=== PATIENT | male | born 1960 | race Caucasian/White ===

== ENCOUNTER 2020-08-30 15:34 | Inpatient (IN) | payer BC ==
[~2020-08-30] VITALS: Ht 182.9 cm; Wt 118.4 kg
[~2020-08-30 15:34] MED LIST: CARAFATE1 GM/10 ML PO; ESOMEPRAZOLE MA20 MG PO; NTG IV; PEPCID20 MG PO
[2020-08-30 16:45] LABS: RED BLOOD COUNT 4.24 M/UL (4.20-5.50); WHITE BLOOD COUNT 3.5 K/UL (4.5-11.0)
[2020-08-30 17:31] LABS: BUN/CREATININE RATIO 20 (0-10)
[2020-08-30] MEDS ORDERED: LIPITOR TAB 2020 MG PO (21:37)
[2020-08-30] MEDS ORDERED: IBUPROFEN800 MG PO (21:38)
[2020-08-30] MEDS ORDERED: LOPRESSOR 50 MG50 MG PO (21:38)
[2020-08-30] MEDS ORDERED: PLAVIX75 MG PO (21:39)
[2020-08-30] MEDS ORDERED: PHENERGAN6.25 MG/1 PO (21:41)
[2020-08-31 05:14] LABS: HEMOGLOBIN 12.4 gm/dl (14.0-17.5)
[2020-08-31 05:15] LABS: RED BLOOD COUNT 3.73 M/UL (4.20-5.50); WHITE BLOOD COUNT 2.2 K/UL (4.5-11.0)
[2020-08-31 05:37] LABS: BUN/CREATININE RATIO 25 (0-10)
[2020-09-01 04:49] LABS: HEMOGLOBIN 11.9 gm/dl (14.0-17.5); RED BLOOD COUNT 3.65 M/UL (4.20-5.50)
[2020-09-01 05:04] LABS: WHITE BLOOD COUNT 3.5 K/UL (4.5-11.0)
[2020-09-01 05:11] LABS: BUN/CREATININE RATIO 40 (0-10)
[2020-09-02 04:35] LABS: HEMOGLOBIN 10.9 gm/dl (14.0-17.5); RED BLOOD COUNT 3.39 M/UL (4.20-5.50)
[2020-09-02 04:37] LABS: WHITE BLOOD COUNT 2.5 K/UL (4.5-11.0)
[2020-09-02 05:04] LABS: BUN/CREATININE RATIO 32 (0-10)
[2020-09-03 05:30] LABS: HEMOGLOBIN 12.2 gm/dl (14.0-17.5)
[2020-09-03 05:42] LABS: RED BLOOD COUNT 3.75 M/UL (4.20-5.50); WHITE BLOOD COUNT 3.2 K/UL (4.5-11.0)
[2020-09-03 06:11] LABS: BUN/CREATININE RATIO 30 (0-10)
[2020-09-04 01:57] LABS: HEMOGLOBIN 12.5 gm/dl (14.0-17.5); RED BLOOD COUNT 3.82 M/UL (4.20-5.50); WHITE BLOOD COUNT 3.1 K/UL (4.5-11.0)
[2020-09-04 02:40] LABS: BUN/CREATININE RATIO 30 (0-10)
[2020-09-05 04:50] LABS: HEMOGLOBIN 12.7 gm/dl (14.0-17.5); RED BLOOD COUNT 3.93 M/UL (4.20-5.50); WHITE BLOOD COUNT 2.8 K/UL (4.5-11.0)
[2020-09-05 05:08] LABS: BUN/CREATININE RATIO 31 (0-10)
[2020-09-06 05:36] LABS: HEMOGLOBIN 12.5 gm/dl (14.0-17.5); RED BLOOD COUNT 3.84 M/UL (4.20-5.50); WHITE BLOOD COUNT 2.7 K/UL (4.5-11.0)
[2020-09-06 06:06] LABS: BUN/CREATININE RATIO 32 (0-10)
[2020-09-06 14:12] LABS: ORGANISM ID Not indicated. (.); SPECIMEN SOURCE Urine (.); STREPTOCOCCUS PNEUMONIAE AG Negative (Negative)
[2020-09-07 04:10] LABS: HEMOGLOBIN 12.8 gm/dl (14.0-17.5); WHITE BLOOD COUNT 2.6 K/UL (4.5-11.0)
[2020-09-07 04:51] LABS: BUN/CREATININE RATIO 30 (0-10)
[2020-09-08 04:06] LABS: HEMOGLOBIN 13.4 gm/dl (14.0-17.5); RED BLOOD COUNT 4.16 M/UL (4.20-5.50); WHITE BLOOD COUNT 2.8 K/UL (4.5-11.0)
[2020-09-08 04:36] LABS: BUN/CREATININE RATIO 30 (0-10)
[2020-09-08] MEDS ORDERED: LOPRESSOR 25 MG25 MG PO (11:12)
[2020-09-08] MEDS ORDERED: DOXYCYCLINE HY100 MG PO (11:12)
[2020-09-08] MEDS ORDERED: PROTONIX 40 MG40 M1 PO (11:12)
[2020-09-08] MEDS ORDERED: DECADRON6 MG PO (11:12)
[2020-09-08] MEDS ORDERED: VENTOLIN HFA 66.7 GM INH (11:12)
== END 2020-09-08 16:08 | disposition home or self-care (01) | DRG 871 ==
LOC: ER1 15:34 → CDU 18:32 → CCU 18:32 → MED SURG 4 09-07 11:37
PROVIDERS: Internal Medicine; Internal Medicine Pulmonary Disease; Preventive Medicine Occupational Medicine; ADMIT Internal Medicine Infectious Disease
PROC: 3E0333Z Introduction of Anti-inflammatory into Peripheral Vein, Percutaneous Approach (ICD-10-PCS; principal; 2020-08-30)
PROC: XW033E5 Introduction of Remdesivir Anti-infective into Peripheral Vein, Percutaneous Approach, New Technology Group 5 (ICD-10-PCS; 2020-08-30)
PROC: 5A0945A Assistance with Respiratory Ventilation, 24-96 Consecutive Hours, High Flow/Velocity Cannula (ICD-10-PCS; 2020-08-30)
PROC: 8E0ZXY6 Isolation (ICD-10-PCS; 2020-08-30)
PROC: XW13325 Transfusion of Convalescent Plasma (Nonautologous) into Peripheral Vein, Percutaneous Approach, New Technology Group 5 (ICD-10-PCS; 2020-09-01)
DX: A41.89 Other specified sepsis (principal); U07.1 COVID-19; J12.82 Pneumonia due to coronavirus disease 2019; J80 Acute respiratory distress syndrome; E87.2 Acidosis; D61.818 Other pancytopenia; E66.9 Obesity, unspecified; J02.9 Acute pharyngitis, unspecified; R73.9 Hyperglycemia, unspecified; T38.0X5A Adverse effect of glucocorticoids and synthetic analogues, initial encounter; E78.5 Hyperlipidemia, unspecified; R65.20 Severe sepsis without septic shock; I10 Essential (primary) hypertension; E87.5 Hyperkalemia; K21.9 Gastro-esophageal reflux disease without esophagitis; I25.10 Atherosclerotic heart disease of native coronary artery without angina pectoris; D69.6 Thrombocytopenia, unspecified; Z96.651 Presence of right artificial knee joint; Z95.1 Presence of aortocoronary bypass graft; Z47.1 Aftercare following joint replacement surgery; Z83.3 Family history of diabetes mellitus; Z82.49 Family history of ischemic heart disease and other diseases of the circulatory system; Z83.6 Family history of other diseases of the respiratory system; Z87.891 Personal history of nicotine dependence; Z79.82 Long term (current) use of aspirin; Z79.899 Other long term (current) drug therapy; Z68.35 Body mass index [BMI] 35.0-35.9, adult
CPT/HCPCS: 36415; 36600; 71045; 80053; 82550; 82553; 82728; 82803; 82962; 83605; 83615; 83690; 83735; 83874; 83880; 84100; 84132; 84484; 85025; 85027; 85379; 85384; 85610; 85652; 86140; 86900; 86901; 86927; 87070; 87081; 87205; 87278; 87899; 94640; 94664; 94760; 96374; 96375; 99285; J0456; J0696; J1100; J1205; J1650; J7030; J7040; J7050; Q9967; U0002

== ENCOUNTER → 2020-10-23 | Outpatient (CLI) | payer BC ==
[~2020-10-23] MED LIST changes: +DECADRON6 MG PO; +DOXYCYCLINE HY100 MG PO; +IBUPROFEN800 MG PO; +LIPITOR TAB 2020 MG PO; +LOPRESSOR 25 MG25 MG PO; +LOPRESSOR 50 MG50 MG PO; +PHENERGAN6.25 MG/1 PO; +PLAVIX75 MG PO; +PROTONIX 40 MG40 M1 PO; +VENTOLIN HFA 66.7 GM INH
== END ==
LOC: EXRD 10:51
DX: Z86.16 Personal history of COVID-19 (principal)
CPT/HCPCS: 71046

== ENCOUNTER → 2020-12-04 | Outpatient (CLI) | payer BC | LOC: HEART 5 11:30 | DX: I25.10 Atherosclerotic heart disease of native coronary artery without angina pectoris (principal); R00.2 Palpitations; R06.02 Shortness of breath; I07.1 Rheumatic tricuspid insufficiency; I27.20 Pulmonary hypertension, unspecified | CPT/HCPCS: 93306 ==

== ENCOUNTER → 2021-01-05 | Outpatient (CLI) | payer BC | LOC: EXRD 10:12 | DX: M54.50 Low back pain, unspecified (principal); M51.36 Other intervertebral disc degeneration, lumbar region | CPT/HCPCS: 72110 ==